=== PATIENT | male | born 1955 | race Caucasian/White ===

== ENCOUNTER → 2018-08-17 | Outpatient (CLI) | payer OTHER ==
[~2018-08-17] MED LIST: NEXI20CA33 PO
--- NOTE | 2018-08-17 23:23 | REP ---
Clinical: Splenomegaly. Comparison: None. Technique: Real time rodriguez scale ultrasound examination using curved array transducer. Findings: Liver is normal in contour, size, echogenicity without focal hepatic abnormality appreciated. The pancreas is incompletely evaluated due to interposed bowel gas but visualized portions appear normal. The spleen is normal in contour and echogenicity but enlarged and measures 14.7 x 4.9 x 13.8 cm (splenic index: 994). The gallbladder is normal and without gallstones, wall thickening, or pericholecystic fluid. No biliary ductal dilatation is appreciated and the common bile duct measures 3.3 mm diameter. The bilateral kidneys are normal in reniform shape and echogenicity without hydronephrosis. Right kidney measures 11.7 x 6.6 x 6.5 cm. Left kidney measures 11.7 x 4.6 x 4.8 cm. Abdominal aorta is normal. No ascites. Impression: 1. Splenomegaly without focal splenic abnormality. Electronically Signed by Art Warren MD 08/17/2018 11:14 P
== END ==
LOC: M RAD 07:17
PROVIDERS: ATTEND Internal Medicine
DX: R16.1 Splenomegaly, not elsewhere classified (principal)

== ENCOUNTER → 2018-11-03 | Outpatient (CLI) | payer OTHER ==
--- NOTE | 2018-11-03 07:59 | REP ---
Clinical: Splenomegaly. Comparison: 08/17/2018. Technique: Real time rodriguez scale ultrasound examination using curved array transducer. Findings: The spleen measures 12.2 x 11.4 x 5.6 cm (splenic index equals 779) and is decreased from prior examination. No focal splenic lesions are identified. Left kidney is normal in reniform shape without hydronephrosis and measures 11.6 x 6.0 x 4.9 cm. No ascites in the visualized left upper quadrant. Impression: Mild splenomegaly minimally decreased from prior examination. Electronically Signed by Art Warren MD 11/03/2018 07:50 A
== END ==
LOC: M RAD 06:25
PROVIDERS: ATTEND Internal Medicine
DX: R16.1 Splenomegaly, not elsewhere classified (principal)

== ENCOUNTER → 2020-01-27 | Outpatient (CLI) | payer OTHER ==
--- NOTE | 2020-01-27 14:57 | REP ---
INDICATION: WRIST PAIN COMPARISON: None. TECHNIQUE: Four views right wrist. FINDINGS: There is no evidence of acute fracture, dislocation, or intrinsic bone disease.There is an old avulsion fracture or accessory ossicle of the ulnar styloid process. The joint spaces appear normal. IMPRESSION: No acute fracture or dislocation. Old avulsion fracture or accessory ossicle ulnar styloid process. <Electronically signed by Denys Lyons > 01/27/20 [id number]
== END ==
LOC: M WUC 13:36
PROVIDERS: ATTEND Family Medicine
DX: M25.531 Pain in right wrist (principal)

== ENCOUNTER → 2020-03-18 | Outpatient (CLI) | payer BC | LOC: M LABSMTC 08:42 | PROVIDERS: ATTEND Anesthesiology | DX: Z01.812 Encounter for preprocedural laboratory examination (principal); Z20.822 Contact with and (suspected) exposure to COVID-19 ==

== ENCOUNTER 2020-03-23 11:32 | Day surgery (SDC) | payer BC ==
[~2020-03-23] VITALS: Ht 172.7 cm; Wt 95.3 kg
[~2020-03-23 11:32] MED LIST changes: +NS 1,000 ML IV ONE
--- OUTSIDE RECORDS SUMMARY | 2020-03-23 11:37 | CCD | Continuity of Care Document ---
Author Author Zay VILLEGAS MD Organization Unknown Address [address] [place] [address] Phone [phone] Care Team Providers Care Software Manager Name Role Phone Mike Cameron M.D. [facility] [phone] Problems Description No Information Available Social History Type Date Description Comments Sex Unknown ETOH Use Currently consumes alcohol 10-12 A WEEK Tobacco Use Start: Unknown Denies Smoking Recreational Drug Use Denies Drug Use Allergies, Adverse Reactions, Alerts Description No Known Drug Allergies Medications Active Medications SIG Qnty Indications Ordering Provide r Date Nexium 20mg Capsules DR 1 by mouth three times a week Unknown Immunizations Description No Information Available Vital Signs Date Vital Result Comment 03/08/2020 2:32pm BP Systolic 134 mmHg BP Diastolic 86 mmHg Height 68 inches 5'8" Weight 211.00 lb BMI (Body Mass Index) 32.1 kg/m2 [place] Body Weight 154 lb Weight 95.710 kg BSA (Body Surface Area) 2.09 m2 Results Description No Information Available Procedures Description No Information Available Medical Devices Description No Information Available Encounters Description No Information Available Assessments Description No Information Available Plan of Treatment No Information Available Functional Status Description No Information Available Mental Status Description No Information Available Referrals Refer to Reason for Referral Status Appt Date Garry Villegas JR, MD COLONOSCOPY Created [address] [place] [id number] [phone]
--- OUTSIDE RECORDS SUMMARY | 2020-03-23 11:37 | CCD | Continuity of Care Document ---
Author Author Zay BACON M.D. Organization Unknown Address [address] [place] [address] Phone [phone] Care Team Providers Care Product Line Manager Name Role Phone Mike Bacon MD [facility] [phone] Problems Description No Information Available Social History Type Date Description Comments Sex Unknown ETOH Use Occasionally consumes beer ETOH Use Drinks 1 Alcoholic Beverage Per Day Tobacco Use Start: Unknown Patient has never smoked Allergies, Adverse Reactions, Alerts Description No Known Drug Allergies Medications Active Medications SIG Qnty Indications Ordering Provide r Date Nexium 24HR 20mg Capsules DR 1 by mouth every day prn 30caps Mike Bacon M.D. 01/25/2020 Immunizations Description No Information Available Vital Signs Date Vital Result Comment 01/25/2020 12:57pm BP Systolic 154 mmHg came the stai rs BP Diastolic 96 mmHg came the stairs BP Systolic Recheck 145 mmHg MD BP Diastolic Recheck 90 mmHg MD BP Systolic Lying Down 130 mmHg at home BP Diastolic Lying Down 80 mmHg at home Heart Rate 78 /min Height 68.50 inches 5'8.50" Weight 218.00 lb BMI (Body Mass Index) 32.7 kg/m2 Results Test Acquired Date Facility Test Result H/L Range Note Complete Blood Count 01/25/2020 [facility] Solar Panel Installer: [place] [address] [phone] WBC 4.9 x10*3/UL 4.1 - 10.9 RBC 4.79 x10*6/UL 4.20 - 6.30 Hemoglobin 15.9 g/dL 12.0 - 18.0 Hematocrit 43.3 % 37.0 - 51.0 MCV 90.4 fL 80.0 - 97.0 MCH 33.1 pg High 26.0 - 32.0 MCHC 36.6 g/dL 31.0 - 38.0 RDW 12.4 % 11.6 - 13.7 PLT 143 x10*3/UL 140 - 440 MPV 8.2 FL 7.8 - 11.0 Lymph % 34.5 % 10.0 - 58.5 Mid % 7.1 % 1.7 - 9.3 Neut % 58.4 % 37.0 - 92.0 Lymph # 1.7 x10*3/UL 0.6 - 4.1 Mid # 0.3 x10*3/UL 0.1 - 0.6 Neut # 2.9 x10*3/UL 2.0 - 7.8 Comprehensive Chem Profile 01/25/2020 [facility] Solar Panel Installer: [place] [address] [phone] Glucose 96 mg/dL 74 - 99 1 BUN 14 mg/dL 7 - 18 Creatinine 1.0 mg/dL 0.6 - 1.3 Sodium 142 mEq/L 136 - 145 Potassium 3.7 mEq/L 3.5 - 5.1 Chloride 102 mEq/L 98 - 107 Carbon Dioxide 29 mEq/L 21 - 32 Calcium 8.9 mg/dL 8.5 - 10.1 Alk. Phosphatase 64 mg/dL 46 - 116 Total Bilirubin 1.1 mg/dL High 0.2 - 1.0 Ast (Sgot) 13 U/L Low 15 - 37 Alt (SGPT) 24 U/L 12 - 78 Albumin 4.2 g/dL 3.4 - 5.0 Total Protein 7.3 g/dL 6.4 - 8.2 A/G Ratio 1.35 CALC 1.00 - 1.90 GFR >= 60 mL/min >60 GFR >= 60 mL/min >60 2 Lipid Profile 01/25/2020 [facility] Solar Panel Installer: Dr Malachi [place] [address] [phone] Cholesterol 244 mg/dL High 131 - 200 Triglycerides 108 mg/dL 30 - 150 HDL Cholesterol 61 mg/dL High 35 - 60 LDL (Calculated) 161 CALC High 50 - 159 Laboratory test finding 01/25/2020 [facility] Solar Panel Installer: Dr Malachi [place]herty [place] [address] [phone] Thyroid Stimulating Hormone 1.94 uIU/mL 0.3 6 - 3.74 1 100-125 mg/dL PRE-DIABET ES/FASTING >126 mg/dL DIABETES/FASTING 2 CHRONIC KIDNEY DISEASE STAGI NG PER NKF STAGE I & II GFR >= 60 NORMAL TO MILDLY DECREASED STAGE III GFR 30-59 MODERATELY DECREASED STAGE IV GFR 15-29 SEVERELY DECREASED STAGE V GFR <15 VERY LITTLE GFR LEFT ESRD GFR <15 ON BANK COMPLIANCE OFFICER Procedures Description No Information Available Medical Devices Description No Information Available Encounters Type Date Location Provider Dx Diagnosis Office Visit 01/25/2020 1:00p [facility] Mike Bacon M.D. Z00.00 Encntr for general adult medical exam w/ o abnormal findings E78.5 Hyperlipidemia, unspecified K21.9 Gastro-esophageal reflux dis ease without esophagitis M25.531 Pain in right wrist R16.1 Splenomegaly, not elsewhere classified D69.6 Thrombocytopenia, unspecifie d R03.0 Elevated blood-pressure read ing, w/o diagnosis of htn Assessments Date Code Description Provider 01/25/2020 Z00.00 Encounter for genera l adult medical examination without abnormal findings Mike Bacon M.D. 01/25/2020 E78.5 Hyperlipidemia, unspecified Mahi Bacon M.D. 01/25/2020 K21.9 Gastro-esophageal reflux disease without esophagitis Mike Bacon M.D. 01/25/2020 M25.531 Pain in right wrist Mike levy M.D. 01/25/2020 R16.1 Splenomegaly, not elsewhere clas sified Mike Bacon M.D. 01/25/2020 D69.6 Thrombocytopenia, unspecified Kevyn Bacon M.D. 01/25/2020 R03.0 Elevated blood-press ure reading, without diagnosis of hypertension Mike Bacon M.D. Plan of Treatment Future Appointment(s):* 07/21/2020 8:20 am - Lab Schedule at [facility] * 07/24/2020 9:00 am - Mike Bacon M.D. at [facility] 01/25/2020 - Mike Bacon M.D.* Z00.00 Encntr for general adult medical exam w/o abnormal findings * E78.5 Hyperlipidemia, unspecified * K21.9 Gastro-esophageal reflux disease without esophagitis * M25.531 Pain in right wrist * R16.1 Splenomegaly, not elsewhere classified * D69.6 Thrombocytopenia, unspecified * R03.0 Elevated blood-pressure reading, w/o diagnosis of htn * * Comments:* 7. Ongoing Care. Patient is establishing. I did discuss with him getting records of his immunizations as well as having a colonoscopy for screening. He has not had one before and will make that referral today. He is going to have labs on the way out including CMP, lipids, CBC and he understands the importance of follow up. We did discuss alcohol intake and moderating this. It appears [facility] thought that may have contributed to his low platelets. The patient overall feels he is doing well. Will follow up in 6 months for a Well visit and appears appreciative of the guidance and he will let me know if there is any new issues or concerns in the interim. Functional Status Description No Information Available Mental Status Description No Information Available Referrals Description No Information Available
--- OUTSIDE RECORDS SUMMARY | 2020-03-23 11:37 | CCD | Continuity of Care Document ---
Author Author Zay BACON M.D. Organization Unknown Address [address] [address] Phone [phone] Care Team Providers Care Web Marketing Analyst Name Role Phone Mike Bacon MD [facility] [phone] Problems Description No Information Available Social History [...] BP Diastolic 96 mmHg came the stairs Heart Rate 78 /min Height 68.50 inches 5'8.50" Weight 218.00 lb BMI (Body Mass Index) 32.7 kg/m2 Results Description No Information Available Procedures Description No Information Available Medical Devices Description No Information Available Encounters Description No Information Available Assessments Description No Information Available Plan of Treatment 01/25/2020 - Mike Bacon M.D.* * New Medication:* Nexium 24HR 20 mg Functional Status Description No Information Available Mental Status Description No Information Available Referrals Description No Information Available
--- OUTSIDE RECORDS SUMMARY | 2020-03-23 11:37 | CCD | Continuity of Care Document ---
Author Author Zay BACON M.D. Organization Unknown Address [address] [place] [address] Phone [phone] Care Team Providers Care Biostatistics Teacher Name Role Phone Mike Bacon MD [facility] [phone] Problems Description No Information Available Social History [...] H/L Range Note Complete Blood Count 01/25/2020 [facility] Mobile Sales Expert: [place] [address] [phone] WBC 4.9 x10*3/UL 4.1 - 10.9 RBC [...] 2.0 - 7.8 Comprehensive Chem Profile 01/25/2020 [facility] Mobile Sales Expert: [place] [address] [phone] Glucose 96 mg/dL 74 - 99 1 [...] 60 mL/min >60 2 Lipid Profile 01/25/2020 [facility] Mobile Sales Expert: [place] [address] [phone] Cholesterol 244 mg/dL High 131 - 200 Triglycerides 108 mg/dL 30 - 150 HDL Cholesterol 61 mg/dL High 35 - 60 LDL (Calculated) 161 CALC High 50 - 159 Laboratory test finding 01/25/2020 [facility] Mobile Sales Expert: [place] [address] [phone] Thyroid Stimulating Hormone 1.94 uIU/mL 0.3 6 - 3.74 1 100-125 mg/dL PRE-DIABET ES/FASTING >126 mg/dL DIABETES/FASTING 2 CHRONIC KIDNEY DISEASE STAGI NG PER NKF STAGE I & II GFR >= 60 NORMAL TO MILDLY DECREASED STAGE III GFR 30-59 MODERATELY DECREASED STAGE IV GFR 15-29 SEVERELY DECREASED STAGE V GFR <15 VERY LITTLE GFR LEFT ESRD GFR <15 ON COMMERCIAL LOAN ANALYST Procedures Description No Information Available Medical Devices Description No Information Available Encounters Description No Information Available Assessments Date Code Description Provider 01/25/2020 E78.5 Hyperlipidemia, unspecified Mahi Bacon M.D. [...] 07/21/2020 8:20 am - Lab Schedule at [facility] * 07/24/2020 9:00 am - Mike Bacon M.D. at [facility] 01/25/2020 - Mike Bacon M.D.* E78.5 Hyperlipidemia, unspecified * K21.9 Gastro-esophageal reflux disease without esophagitis * M25.531 Pain in right wrist * R16.1 Splenomegaly, not elsewhere classified * D69.6 Thrombocytopenia, unspecified * R03.0 Elevated blood-pressure reading, w/o diagnosis of htn * Functional Status Description No Information Available Mental Status Description No Information Available Referrals Description No Information Available
--- OUTSIDE RECORDS SUMMARY | 2020-03-23 11:38 | CCD ---
Author Author [facility] Organization [facility] Address Unknown Phone Unavailable Care Team Providers Care Slitter And Rewinder Name Role Phone Adalid Cameron MD Unavailable Unavailable Adalid Cameron MD Unavailable Unavailable Adalid Cameron MD Unavailable Unavailable Adalid Cameron MD Unavailable Unavailable Adalid Cameron MD Unavailable Unavailable Adalid Cameron MD Unavailable Unavailable Adalid Cameron MD Unavailable Unavailable Adalid Cameron MD Unavailable Unavailable Adalid Cameron MD Unavailable Unavailable Adalid Cameron MD Unavailable Unavailable Adalid Cameron MD Unavailable Unavailable Adalid Cameron MD Unavailable Unavailable Adalid Cameron MD Unavailable Unavailable Adalid Cameron MD Unavailable Unavailable Adalid Cameron MD Unavailable Unavailable Adalid Cameron MD Unavailable Unavailable Adalid Cameron MD Unavailable Unavailable Adalid Cameron MD Unavailable Unavailable Adalid Cameron MD Unavailable Unavailable Adalid Cameron MD Unavailable Unavailable Adalid Cameron MD Unavailable Unavailable Adalid Cameron MD Unavailable Unavailable Adalid Cameron MD Unavailable Unavailable Adalid Cameron MD Unavailable Unavailable Adalid Cameron MD Unavailable Unavailable Adalid Cameron MD Unavailable Unavailable Adalid Cameron MD Unavailable Unavailable Adalid Cameorn MD Unavailable Unavailable Adalid Cameron MD Unavailable Unavailable Adalid Cameron MD Unavailable Unavailable Adalid Cameron MD Unavailable Unavailable Adalid Cameron MD Unavailable Unavailable Adalid Cameron MD Unavailable Unavailable Adalid Cameron MD Unavailable Unavailable Adalid Cameron MD Unavailable Unavailable Adalid Cameron MD Unavailable Unavailable Adalid Cameron MD Unavailable Unavailable Adalid Cameron MD Unavailable Unavailable Adalid Cameron MD Unavailable Unavailable Adalid Cameron MD Unavailable Unavailable Adalid Cameron MD Unavailable Unavailable Adalid Cameron MD Unavailable Unavailable Adalid Cameron MD Unavailable Unavailable Adalid Cameron MD Unavailable Unavailable Adalid Cameron MD Unavailable Unavailable Adalid Cameron MD Unavailable Unavailable Adalid Cameron MD Unavailable Unavailable Adalid Cameron MD Unavailable Unavailable Adalid Cameron MD Unavailable Unavailable Nisha F Mike SHERWOOD Unavailable Unavailable Adalid Cameron MD Unavailable Unavailable Adalid Cameron MD Unavailable Unavailable Adalid Cameron MD Unavailable Unavailable Adalid Cameron MD Unavailable Unavailable Adalid Cameron MD Unavailable Unavailable Adalid Cameron MD Unavailable Unavailable Adalid Cameron MD Unavailable Unavailable Adalid Cameron MD Unavailable Unavailable Adalid Cameron MD Unavailable Unavailable Adalid Cameron MD Unavailable Unavailable Adalid Cameron MD Unavailable Unavailable Adalid Cameron MD Unavailable Unavailable Adalid Cameron MD Unavailable Unavailable Adalid Cameron MD Unavailable Unavailable Adalid Cameron MD Unavailable Unavailable Adalid Cameron MD Unavailable Unavailable Adalid Cameron MD Unavailable Unavailable Adalid Cameron MD Unavailable Unavailable Adalid Cameron MD Unavailable Unavailable Adalid Cameron MD Unavailable Unavailable Adalid Cameron MD Unavailable Unavailable Adalid Cameron MD Unavailable Unavailable Adalid Cameron MD Unavailable Unavailable Adalid Cameron MD Unavailable Unavailable JASON, PHOEBE PA Unavailable Unavailable JASON, PHOEBE PA Unavailable Unavailable JASON, PHOEBE PA Unavailable Unavailable JASON, PHOEBE PA Unavailable Unavailable JASON, PHOEBE PA Unavailable Unavailable JASON, PHOEBE PA Unavailable Unavailable JASON, PHOEBE PA Unavailable Unavailable JASON, PHOEBE PA Unavailable Unavailable JASON, PHOEBE PA Unavailable Unavailable JASON, PHOEBE PA Unavailable Unavailable JASON, PHOEBE PA Unavailable Unavailable JASON, PHOEBE PA Unavailable Unavailable JASON, PHOEBE PA Unavailable Unavailable JASON, PHOEBE PA Unavailable Unavailable JASON, PHOEBE PA Unavailable Unavailable JASON, PHOEBE PA Unavailable Unavailable JASON, PHOEBE PA Unavailable Unavailable JASON, PHOEBE PA Unavailable Unavailable JASON, PHOEBE PA Unavailable Unavailable JASON, PHOEBE PA Unavailable Unavailable JASON, PHOEBE PA Unavailable Unavailable JASON, PHOEBE PA Unavailable Unavailable JASON, PHOEBE PA Unavailable Unavailable JASON, PHOEBE PA Unavailable Unavailable JASON, PHOEBE PA Unavailable Unavailable JASON, PHOEBE PA Unavailable Unavailable JASON, PHOEBE PA Unavailable Unavailable JASON, PHOEBE PA Unavailable Unavailable JASON, PHOEBE PA Unavailable Unavailable JASON, PHOEBE PA Unavailable Unavailable JASON, PHOEBE PA Unavailable Unavailable JASON, PHOEBE PA Unavailable Unavailable JASON, PHOEBE PA Unavailable Unavailable JASON, PHOEBE PA Unavailable Unavailable JASON, PHOEBE PA Unavailable Unavailable JASON, PHOEBE PA Unavailable Unavailable JASON, PHOEBE PA Unavailable Unavailable JASON, PHOEBE PA Unavailable Unavailable Re-disclosure Warning The records that you are about to access may contain information from federally-assisted alcohol or drug abuse programs. If such information is present, then the following federally mandated warning applies: This information has been disclosed to you from records protected by federal confidentiality rules (42 CFR part 2). The federal rules prohibit you from making any further disclosure of this information unless further disclosure is expressly permitted by the written consent of the person to whom it pertains or as otherwise permitted by 42 CFR part 2. A general authorization for the release of medical or other information is NOT sufficient for this purpose. The Federal rules restrict any use of the information to criminally investigate or prosecute any alcohol or drug abuse patient.The records that you are about to access may contain highly sensitive health information, the redisclosure of which is protected by Article 27-F of the [facility] Public Health law. If you continue you may have access to information: Regarding HIV / AIDS; Provided by facilities licensed or operated by the [facility] Office of Mental Health; or Provided by the [facility] Office for People With Developmental Disabilities. If such information is present, then the following [facility] mandated warning applies: This information has been disclosed to you from confidential records which are protected by state law. State law prohibits you from making any further disclosure of this information without the specific written consent of the person to whom it pertains, or as otherwise permitted by law. Any unauthorized further disclosure in violation of state law may result in a fine or shelter sentence or both. A general authorization for the release of medical or other information is NOT sufficient authorization for further disc losure. Family History Family Member Name Family Member Gender Family Member Status Date o f Status Description Data Source(s) Unknown Unknown Problem [facility] ([facility] Encounters Encounter Providers Location Date Indications Data Source(s ) Outpatient Attender: Mike Solo 01/24 12:00:00 PM EST [facility] ([facility] ) Outpatient Attender: PHOEBE regalado 09/26/2019 11:30:00 AM EDT [facility] ([facility], [facility]) Medications Medication Brand Name Start Date Product Form Dose Route Admi nistrative Instructions Pharmacy Instructions Status Indications Reaction Description Data Source(s) 17.5-3.13-1.6 gram 03/16/2020 12:00:00 AM EST recon soln 354 TAKE PER [facility]CTORS B[facility] PREP INSTRUCTIONS TAKE PER [employer]CTORS [employer]OW[employer] PREP INSTRUCTIONS SOLD: 03/21/2020 Albarran [facility] Extra Esomeprazole 20 MG Delayed Release Oral Capsule [Nexium] Nex ium 24HR 01/25/2020 12:00:00 AM EST ORAL active M [facility] ([facility]) No Active Medications 09/26/2019 12:00:00 AM EDT completed [facility] ([facility]) Prednisone 20 MG Oral Tablet Prednisone 09/26/2019 12:00:00 AM EDT ORAL active [facility] ([facility]) 20 mg 02/20/2019 12:00:00 AM EST tablet 10 TAKE TWO TABLETS BY MOUTH EVERY MORNING WITH BREAKFAST FOR 5 DAYS TAKE TWO TABLETS BY MOUTH EVERY MORNING WITH BREAKFAST FOR 5 DAYS SOLD: 02/20/2019 [facility] Insurance Providers Payer name Policy type / Coverage type Policy ID Covered republican ID Covered republican's relationship to patel Policy Patel Plan Information [employer] [place]/[id number] SP [id number] [employer] [place] 302/[id number] SP [id number] [employer] BCBS B [id number] S [id number] [facility] O [id number] S [id number] [facility] CARE [id number] SP [id number] [facility] [id number] SP [id number] [facility] PHY [id number] SP [id number] [facility] [id number] SP [id number] [facility] Health Maintenance Organization (HMO) Se lf Results ID Date Data Source [id number] 03/18/2020 09:15:00 AM EST [facility] Name Value Range Interpretation Code Description Data Yael rce(s) Supporting Document(s) SARS coronavirus 2 RNA Not Detected [facility] [place] This lab was ordered by [facility] and reported by [facility]. ID Date Data Source [id number] 01/25/2020 02:06:00 PM EST [facility] ([facility]) Name Value Range Interpretation Code Description Data Yael rce(s) Supporting Document(s) Thyrotropin [Units/volume] in Serum or Plasma by Detec tion limit <= 0.05 mIU/L 1.94 uIU/mL 0.36-3.74 [facility] ([facility] ) ID Date Data Source [id number] 01/25/2020 02:06:00 PM EST [facility] ([facility]) Name Value Range Interpretation Code Description Data Yael rce(s) Supporting Document(s) Cholesterol [Mass/volume] in Serum or Plasma 244 mg/dL 131-200 [facility] ([facility]) Triglyceride [Mass/volume] in Serum or Plasma 108 mg/dL 30-150 [facility] ([facility]) Cholesterol in LDL [Mass/volume] in Serum or Plasma by calcu lation 161 CALC 50-159 [facility] ([facility]) Cholesterol in HDL [Mass/volume] in Serum or Plasma 61 mg/dL 35-60 [facility] ([facility]) ID Date Data Source [id number] 01/25/2020 02:06:00 PM EST [facility] ([facility]) Name Value Range Interpretation Code Description Data Yael rce(s) Supporting Document(s) Glucose [Mass/volume] in Serum or Plasma 96 mg/dL 74-99 [facility] ([facility]) 100-125 mg/dL PRE-DIABETES/FASTING >126 mg/dL DIABETES/FASTING Urea nitrogen [Mass/volume] in Serum or Plasma 14 mg/dL 7-18 [facility] ([facility]) Creatinine 1.0 mg/dL 0.6-1.3 [facility]) Sodium [Moles/volume] in Serum or Plasma 142 meq/L 136-145 [facility] ([facility]) Carbon dioxide, total [Moles/volume] in Serum or Plasma 29 meq/L 21 -32 [facility] ([facility]) Potassium [Moles/volume] in Serum or Plasma 3.7 meq/L 3.5-5.1 [facility] ([facility]) Chloride [Moles/volume] in Serum or Plasma 102 meq/L 98-107 [facility] ([facility]) Calcium [Mass/volume] in Serum or Plasma 8.9 mg/dL 8.5-10.1 [facility] ([facility]) Alkaline phosphatase isoenzyme [Units/volume] in Serum or Pl asma 64 mg/dL 46-116 [facility] ([facility]) Total Bilirubin 1.1 mg/dL 0.2-1.0 [facility] ([facility]) Albumin [Mass/volume] in Serum or Plasma 4.2 g/dL 3.4-5.0 [facility] ([facility]) Aspartate aminotransferase [Enzymatic activity/volume] in Serum or Plasma 13 U/L 15-37 [facility] ([facility] ) Alanine aminotransferase [Enzymatic activity/volume] in Seru m or Plasma 24 U/L 12-78 [facility] ([facility]) Glomerular filtration rate/1.73 sq M pre dicted among non-blacks [Volume Rate/Area] in Serum or Plasma by Creatinine-based formula (MDRD) Laboratory test result [facility] ([facility] ) Proteinase 3 Ab [Units/volume] in Serum 7.3 g/dL 6.4-8.2 [facility] ([facility]) A/G Ratio 1.35 CALC 1.00-1.90 [facility]) Glomerular filtration rate/1.73 sq M pre dicted among blacks [Volume Rate/Area] in Serum or Plasma by Creatinine-based formula (MDRD) [facility] <content>CHRONIC KIDNEY DISEASE STAGING PER NKF</content>
<content></content>
<content>STAGE I & II GFR >= 60 NORMAL TO MILDLY DECREASED</content>
<content>STAGE III GFR 30-59 MODERATELY DECREASED</content>
<content>STAGE IV GFR 15-29 SEVERELY DECREASED</content>
<content>STAGE V GFR <15 VERY LITTLE GFR LEFT</content>
<content>ESRD GFR <15 ON FLIGHT TEST ENGINEER</content>
<content></content> ID Date Data Source [id number] 01/25/2020 02:06:00 PM EST [facility] ([facility]) Name Value Range Interpretation Code Description Data Yael rce(s) Supporting Document(s) Leukocytes [#/volume] in Blood by Automated count 4.9 x10*3/UL 4.1-10 .9 [facility] ([facility]) Hematocrit [Volume Fraction] of Blood by Automated count 43.3 % 3 7.0-51.0 [facility] Erythrocytes [#/volume] in Blood by Automated count 4.79 x10*6/UL 4.2 0-6.30 [facility] Hemoglobin [Mass/volume] in Blood 15.9 g/dL 12.0-18.0 [facility] ([facility]) MCV 90.4 fL 80.0-97.0 [facility] MCHC 36.6 g/dL 31.0-38.0 [facility] MCH 33.1 pg 26.0-32.0 [facility] Platelets [#/volume] in Blood by Automated count 143 x10*3/UL 140-440 [facility] Erythrocyte distribution width [Ratio] by Automated count 12.4 % 11.6-13.7 [facility] ([facility]) MPV 8.2 FL 7.8-11.0 [facility] Mid % 7.1 % 1.7-9.3 [facility] Lymph % 34.5 % 10.0-58.5 [facility] Neut % 58.4 % 37.0-92.0 [facility] Lymph # 1.7 x10*3/UL 0.6-4.1 [facility] ([facility]) Neut # 2.9 x10*3/UL 2.0-7.8 [facility] ([facility]) Mid # 0.3 x10*3/UL 0.1-0.6 [facility] ([facility]) Procedure Social History Code Duration Value Status Description Data Source(s ) Smoking 09/26/2019 12:00:00 AM EDT Patient has never smoked co mpleted Patient has never smoked [facility] ([facility], [facility]) Vital Signs ID Date Data Source UNK Name Value Range Interpretation Code Description Data Source(s) Body surface area Derived from formula 2.09 m2 2.09 m2 [facility] ([facility]) Body weight 95.710 kg 95.710 kg [facility] ([facility]) [place] body weight 154 [lb_av] 154 [lb_av] [facility] T ([facility]) Body mass index (BMI) [Ratio] 32.1 kg/m2 32.1 k g/m2 [facility] ([facility]) Body weight 211.00 [lb_av] 211.00 [lb_av] [facility] Body height 68 [in_i] 68 [in_i] [facility] ([facility]) 5'8" Diastolic blood pressure 86 mm[Hg] 86 mm[Hg] [facility] ([facility]) Systolic blood pressure 134 mm[Hg] 134 mm[Hg] [facility] Body mass index (BMI) [Ratio] 32.7 kg/m2 32.7 k g/m2 [facility] Body weight 218.00 [lb_av] 218.00 [lb_av] [facility] T ([facility]) Body height 68.50 [in_i] 68.50 [in_i] [facility] 5'8.50" Heart rate 78 /min 78 /min [facility] Diastolic blood pressure--supine 80 mm[Hg] 80 mm[Hg] [facility]) at home Systolic blood pressure--supine 130 mm[Hg] 130 mm[Hg] [facility] at home Diastolic blood pressure 90 mm[Hg] 90 mm[Hg] [facility] Systolic blood pressure 145 mm[Hg] 145 mm[Hg] [facility] ([facility]) Diastolic blood pressure 96 mm[Hg] 96 mm[Hg] [facility]) came the stairs Systolic blood pressure 154 mm[Hg] 154 mm[Hg] [facility]) came the stairs Body mass index (BMI) [Ratio] 31.9 kg/m2 31.9 k g/m2 [facility]) Body height 68 [in_i] 68 [in_i] [facility] ([facility], [facility]) 5'8" Body weight 210.00 [lb_av] 210.00 [lb_av] [facility] T ([facility], [facility]) Body temperature 97.7 [degF] 97.7 [degF] [facility] ([facility], [facility]) Oxygen saturation in Arterial blood by Pulse oximetry 17 % 17 % [facility] ([facility] Respiratory rate 97 /min 97 /min [facility]) Heart rate 76 /min 76 /min [facility] ([facility]) Diastolic blood pressure 98 mm[Hg] 98 mm[Hg] [facility] ([facility]) Systolic blood pressure 149 mm[Hg] 149 mm[Hg] [facility] ([facility])
[2020-03-23] MEDS ORDERED: LIDOCAINE 2% 100MG/5ML SDV (FOR ANES.) As Ordered ONE (11:43)
[2020-03-23] MEDS ORDERED: propofoL 200 MG/20 ML VIAL As Ordered ONE (11:43)
--- NOTE | 2020-03-23 12:49 | ROOR ---
Patient Name: Zay Clark Procedure Date: 03/23/2020 12:28 PM Date of : 1955 Age: 64 Room: [facility] Gender: Male Note Status: Finalized Procedure: Colonoscopy Indications: Screening for colorectal malignant neoplasm Providers: Garry Villegas Jr, MD Referring MD: Mike Cameron MD Requesting Provider: Medicines: Propofol per Anesthesia Complications: No immediate complications. Procedure: Pre-Anesthesia Assessment: - Prior to the procedure, a History and Physical was performed, and patient medications and allergies were reviewed. The patient is competent. The risks and benefits of the procedure and the sedation options and risks were discussed with the patient. All questions were answered and informed consent was obtained. Patient identification and proposed procedure were verified by the physician and the nurse in the pre-procedure area and in the procedure room. Mental Status Examination: alert and oriented. Airway Examination: normal oropharyngeal airway and neck mobility. Respiratory Examination: clear to auscultation. CV Examination: normal. ASA Grade Assessment: II - A patient with mild systemic disease. After reviewing the risks and benefits, the patient was deemed in satisfactory condition to undergo the procedure. The anesthesia plan was to use moderate sedation / analgesia (conscious sedation). Immediately prior to administration of medications, the patient was re-assessed for adequacy to receive sedatives. The heart rate, respiratory rate, oxygen saturations, blood pressure, adequacy of pulmonary ventilation, and response to care were monitored throughout the procedure. The physical status of the patient was re-assessed after the procedure. The Colonoscope was introduced through the anus and advanced to the cecum, identified by appendiceal orifice and ileocecal valve. The colonoscopy was performed without difficulty. The quality of the bowel preparation was adequate. Findings: Two polyps were found in the recto-sigmoid colon and ascending colon. The polyps were small in size. These polyps were removed with a hot snare. Resection and retrieval were complete. The rectum, descending colon, transverse colon, cecum, appendiceal orifice and ileocecal valve appeared normal. Multiple small and large-mouthed diverticula were found in the sigmoid colon. Impression: - Two small polyps at the recto-sigmoid colon and in the ascending colon, removed with a hot snare. Resected and retrieved. - The rectum, descending colon, transverse colon, cecum, appendiceal orifice and ileocecal valve are normal. - Diverticulosis in the sigmoid colon. Recommendation: - Discharge patient to home (ambulatory). - Repeat colonoscopy in 5-10 years for surveillance based on pathology results. Procedure Code(s): --- Professional --- 53596, Colonoscopy, flexible; with removal of tumor(s), polyp(s), or other lesion(s) by snare technique Diagnosis Code(s): --- Professional --- Z12.11, Encounter for screening for malignant neoplasm of colon K63.5, Polyp of colon K57.30, Diverticulosis of large intestine without perforation or abscess without bleeding CPT copyright 2019 [employer]. All rights reserved. The codes documented in this report are preliminary and upon meter reader chief review may be revised to meet current compliance requirements. Garry Villegas MD Garry Villegas Jr, MD 03/23/2020 12:48:35 PM Electronically signed by Garry Villegas Jr, MD Number of Addenda: 0 Note Initiated On: 03/23/2020 12:28 PM Estimated Blood Loss: Estimated blood loss: none.
[2020-03-23 13:15] VITALS: BP 130/94
== END 2020-03-23 13:19 | disposition home or self-care (01) ==
LOC: M OPP 11:32
PROVIDERS: ATTEND Surgery
DX: Z12.11 Encounter for screening for malignant neoplasm of colon (principal); K63.5 Polyp of colon; K57.30 Diverticulosis of large intestine without perforation or abscess without bleeding; E78.5 Hyperlipidemia, unspecified; R12 Heartburn; Z79.899 Other long term (current) drug therapy

== ENCOUNTER 2023-07-18 07:17 | Day surgery (SDC) | payer MEDICARE ==
[~2023-07-18] VITALS: Ht 172.7 cm; Wt 94.3 kg
[~2023-07-18 07:17] MED LIST changes: +LOSA50TA28 PO
[2023-07-18] MEDS ORDERED: LIDOCAINE 2% 100MG/5ML SDV (FOR ANES.) As Ordered ONE (09:15)
[2023-07-18] MEDS ORDERED: propofoL 500 MG/50 ML VIAL As Ordered ONE (09:15)
[2023-07-18 09:42] VITALS: BP 127/77; O2SAT 99
== END 2023-07-18 09:58 | disposition home or self-care (01) ==
LOC: M OPP 07:17
PROVIDERS: ATTEND Surgery
DX: Z86.010 Personal history of colon polyps (principal); K63.5 Polyp of colon; K57.30 Diverticulosis of large intestine without perforation or abscess without bleeding; I10 Essential (primary) hypertension; Z79.899 Other long term (current) drug therapy

== ENCOUNTER → 2023-12-29 | Outpatient (CLI) | payer MEDICARE ==
[~2023-12-29] MED LIST changes: -NS 1,000 ML IV ONE
== END ==
LOC: M WUC 09:39
PROVIDERS: ATTEND Family Medicine
DX: M25.561 Pain in right knee (principal); M11.261 Other chondrocalcinosis, right knee

== ENCOUNTER → 2024-02-16 | Outpatient (REF) | payer MEDICARE ==
[2024-02-16 19:35] LABS: URIC ACID 4.8 MG/DL (3.7-9.2)
[2024-02-16 19:37] LABS: RHEUMATOID FACTOR QUANT < 3.5 IU/ML (<14)
[2024-02-16 19:38] LABS: C REACTIVE PROTEIN QUANTITATIV 0.52 MG/DL (<1.0)
[2024-02-18 14:21] LABS: ANA SCREEN, IFA NEGATIVE (NEGATIVE)
== END ==
LOC: M LAB REF 16:00
PROVIDERS: ATTEND Family Medicine
DX: M25.561 Pain in right knee (principal)

== ENCOUNTER → 2024-11-17 | Outpatient (CLI) | payer MEDICARE ==
[~2024-11-17] MED LIST changes: +ISOVUE-370 76% 100 ML VIAL As Ordered ONE
== END ==
LOC: M RAD 13:12
PROVIDERS: ATTEND Family Medicine
DX: R22.1 Localized swelling, mass and lump, neck (principal); D17.1 Benign lipomatous neoplasm of skin and subcutaneous tissue of trunk
CPT/HCPCS: 70491; Q9967

== ENCOUNTER → 2024-12-27 | Outpatient (REF) | payer MEDICARE ==
[~2024-12-27] MED LIST changes: -ISOVUE-370 76% 100 ML VIAL As Ordered ONE
== END ==
LOC: M LAB REF 12:08
PROVIDERS: ATTEND Family Medicine
DX: M06.9 Rheumatoid arthritis, unspecified (principal)